=== PATIENT | male | born 1975 | race Caucasian/White ===

== ENCOUNTER 2019-01-06 05:00 | Emergency (ER) | payer SELFPAY ==
[~2019-01-06] VITALS: Ht 180.3 cm; Wt 74.4 kg
[2019-01-06 05:06] VITALS: BP 141/103
--- NOTE | 2019-01-06 05:10 | NUR ---
PT BIB FATHER C/O ABCESS. PT STATES HE WAS WORKING AND POKED BY A TREE BRANCH X4 DAYS AGO, ABCESS DEVELOPED TO RLQ NEAR GROIN. +SWELLING AND REDNESS NOTED, WARM TO TOUCH. SAFETY PRECAUTIONS APPLIED. ERMD AWARE OF PT STATUS. WILL CONTINUE TO MONITOR.
[2019-01-06] MEDS ORDERED: SULFAMETH/TRIMETH DS 800/160MG 1 TAB PO ONE (05:15)
[2019-01-06] MEDS ORDERED: CEPHALEXIN 500 MG CAP PO ONE (05:15)
[2019-01-06] MEDS ORDERED: LIDOCAINE 1% 500 MG/50 ML VIAL INJ SCH (05:20)
--- NOTE | 2019-01-06 05:30 | NUR ---
2 INCISIONS MADE TO ABCESS, ABCESS DRAINED AND PACKED W/ IODOFORM BY GINGER, RN AT BEDSIDE. PT TOLERATED PROCEDURE WELL. COVER DRESSING APPLIED. BLEEDING CONTROLLED.
[2019-01-06] MEDS ORDERED: LIDOCAINE MPF 1% - 5 mL VIAL 5 ML ONE (05:32)
--- NOTE | 2019-01-06 05:35 | NUR ---
COVER DRESSING PLACED OVER PT WOUND
[2019-01-06 05:40] VITALS: BP 141/103
--- NOTE | 2019-01-06 05:40 | NUR ---
Patient discharged with v/s stable. Written and verbal after care instructions given and explained. Patient alert, oriented and verbalized understanding of instructions. Ambulatory with steady gait. All questions addressed prior to discharge. ID band removed. Patient advised to follow up with PMD. Rx of BACTRIM DS, IBUPROFEN, KEFLEX given. Patient educated on indication of medication including possible reaction and side effects. Opportunity to ask questions provided and answered.
== END 2019-01-06 05:40 | disposition home or self-care (01) ==
LOC: MED 05:00
DX: L02.211 Cutaneous abscess of abdominal wall (principal); Z88.5 Allergy status to narcotic agent
CPT/HCPCS: 10060; 99283; J2001